=== PATIENT | female | born 1985 | race Caucasian/White ===

== ENCOUNTER 2017-08-19 16:57 | Emergency (ER) | payer OTHER ==
[~2017-08-19] VITALS: Ht 124.4 cm; Wt 60.3 kg
[~2017-08-19 16:57] MED LIST: CLINDAMYCIN150 MG PO; METROGEL-VAGINA0.75% VG; NAPROSYN500 MG PO; VICODIN 500 MG-1 TAB PO
[2017-08-19 16:58] VITALS: BP 135/70
[2017-08-19] MEDS ORDERED: CEPHALEXIN500 M1 PO (17:08)
== END 2017-08-19 17:31 | disposition home or self-care (01) ==
LOC: ED 16:57
DX: L02.414 Cutaneous abscess of left upper limb (principal); Z88.1 Allergy status to other antibiotic agents; Z88.6 Allergy status to analgesic agent